=== PATIENT | male | born 1975 | race Caucasian/White ===

== ENCOUNTER → 2017-06-19 | Outpatient (CLI) | payer OTHER, MEDICAID ==
--- NOTE | 2017-06-20 08:04 | CPEEG ---
[f rep st] ELECTROENCEPHALOGRAM 4 HOUR VIDEO EEG. DATE OF STUDY: 06/19/2017 INTERPRETATION: This 4-hour video EEG recording is abnormal due to the presence of frequent potentially epileptogenic abnormalities over the left temporal head region. These findings would be consistent with a focal seizure disorder. In addition, there was a mild degree of focal slowing over the left temporal head region. These findings would be consistent with a mild focal disturbance of cerebral function in these regions. The patient did not have any clinical events or seizures during the video EEG monitoring session. REPORT: This 4 hour video EEG contains 9 Hz alpha activity over the posterior head regions. There was a mild degree of focal slowing over the left temporal head region composed of intermittent low amplitude theta frequency activity, maximal over the left posterior temporal head regions. The primary feature of this recording was the presence of frequent left temporal spikes and sharp waves with maximal amplitudes over the left posterior temporal head region (maximal at electrodes T3 and T5). These were present at rest and continued with photic stimulation and hyperventilation. The patient fell asleep during the study. During sleep, there was continued left posterior temporal spikes and sharp waves. At times, the discharges had a wider distribution or anterior temporal distribution (on rare occasion). The patient did not have any clinical events or seizures during the video EEG monitoring session. /[id number]/MODL MTDD
== END ==
LOC: FCPNEURO 07:20
PROVIDERS: ATTEND Psychiatry & Neurology Neurology
DX: G40.911 Epilepsy, unspecified, intractable, with status epilepticus (principal)